=== PATIENT | female | born 1990 | race Caucasian/White ===

== ENCOUNTER 2019-08-31 10:55 | Emergency (ER) | payer MEDICAID ==
[~2019-08-31] VITALS: Ht 160 cm; Wt 64.0 kg
[2019-08-31] MEDS ORDERED: ACETAMINOPHEN 500MG TABLET PO ONE (14:00)
[2019-08-31 14:30] VITALS: BP 113/79
== END 2019-08-31 14:30 | disposition home or self-care (01) ==
LOC: ER 11:51
DX: B34.9 Viral infection, unspecified (principal); J45.909 Unspecified asthma, uncomplicated
CPT/HCPCS: 99282; 99283

== ENCOUNTER 2022-04-19 07:30 | Emergency (ER) | payer OTHER ==
[~2022-04-19] VITALS: Ht 160 cm; Wt 67.0 kg
[2022-04-19 07:37] VITALS: BP 119/78
[2022-04-19] MEDS ORDERED: ALBUTEROL (0.083%) 2.5MG/3ML NEB HHN STA (07:47)
[2022-04-19] MEDS ORDERED: ONDANSETRON HCL 4MG TABLET PO ONE (08:00)
[2022-04-19] MEDS ORDERED: ACETAMINOPHEN 325MG TABLET PO ONE (08:00)
[2022-04-19] MEDS ORDERED: FLUT15.844 BOTHNSTRLS (08:59)
[2022-04-19] MEDS ORDERED: ONDA4TAB50 PO (08:59)
[2022-04-19] MEDS ORDERED: AMOX1TAB16 PO (08:59)
[2022-04-19] MEDS ORDERED: TOPUD PO (08:59)
== END 2022-04-19 09:13 | disposition home or self-care (01) ==
LOC: ER 07:30
DX: B34.9 Viral infection, unspecified (principal); J45.909 Unspecified asthma, uncomplicated; R06.02 Shortness of breath; Z20.822 Contact with and (suspected) exposure to COVID-19
CPT/HCPCS: 71045; 87070; 87426; 87430; 87804; 94640; 99284; C9803; Q0162; Z7610

== ENCOUNTER 2022-07-26 08:50 | Emergency (ER) | payer MEDICAID, OTHER ==
[~2022-07-26] VITALS: Ht 160 cm; Wt 63.0 kg
[~2022-07-26 08:50] MED LIST: AMOX1TAB16 PO; FLUT15.844 BOTHNSTRLS; ONDA4TAB50 PO; TOPUD PO
[2022-07-26 08:54] VITALS: BP 128/78
[2022-07-26] MEDS ORDERED: PSEU60TA95 MT (09:44)
[2022-07-26] MEDS ORDERED: ALBU6.7H3 INH (09:44)
[2022-07-26] MEDS ORDERED: AMOX1TAB16 MT (09:44)
[2022-07-26] MEDS ORDERED: FLUT9.9S BOTHNSTRLS (09:44)
== END 2022-07-26 09:55 | disposition home or self-care (01) ==
LOC: ER 08:50
DX: J01.90 Acute sinusitis, unspecified (principal); J06.9 Acute upper respiratory infection, unspecified; J45.909 Unspecified asthma, uncomplicated; R51.9 Headache, unspecified
CPT/HCPCS: 71045; 99283

== ENCOUNTER 2022-08-11 03:23 | Emergency (ER) | payer MEDICAID, OTHER ==
[~2022-08-11] VITALS: Ht 160 cm; Wt 64.0 kg
[~2022-08-11 03:23] MED LIST changes: +ALBU6.7H3 INH; +AMOX1TAB16 MT; +FLUT9.9S BOTHNSTRLS; +PSEU60TA95 MT
[2022-08-11 04:02] LABS: CLARITY URINE CLOUDY (CLEAR); COLOR URINE YELLOW (YELLOW); KETONES URINE NEGATIVE (NEGATIVE); LEUKOCYTE ESTERASE URINE 2+ (NEGATIVE); NITRITE URINE NEGATIVE (NEGATIVE); OCCULT BLOOD URINE 1+ (NEGATIVE); PROTEIN URINE TRACE (NEGATIVE); SPECIFIC GRAVITY URINE 1.033 (1.005-1.030); UROBILINOGEN URINE 0.2 E.U./dL (0.2-1.0)
[2022-08-11] MEDS ORDERED: KETOROLAC 60MG/2ML VIAL IM STA (04:40)
[2022-08-11] MEDS ORDERED: CEFTRIAXONE SODIUM 1 G/VIAL IM ONE (04:45)
[2022-08-11] MEDS ORDERED: LIDOCAINE HCL 1% 20ML VIAL (Pyxis) INJ INFIL ONE (04:45)
[2022-08-11 06:18] LABS: BASOPHILS % 0.2 % (0.0-2.0); EOSINOPHILS % 1.1 % (0.0-5.0); HEMATOCRIT. 38.4 % (36.0-48.0); HEMOGLOBIN. 12.9 g/dL (12.0-16.0); MEAN CORPUSCULAR HEMOGLOBIN 28.4 pg (28.0-32.0); MEAN CORPUSCULAR VOLUME 84.4 fL (81.0-99.0); MEAN PLATELET VOLUME 9.3 fl (7.4-10.4); MONOCYTES % 8.3 % (2.0-8.0); NEUTROPHILS % 73.4 % (40.0-76.0); PLATELET 306 x1000/uL (130-400); RED BLOOD CELL COUNT 4.55 mill/uL (4.2-5.4); RED CELL DISTRIBUTION WIDTH 13.2 % (11.6-14.6)
[2022-08-11 06:21] LABS: CHLORIDE 107 mEq/L (98-107)
[2022-08-11 06:31] VITALS: BP 124/83
[2022-08-11] MEDS ORDERED: NAPR-681 PO (06:34)
[2022-08-11] MEDS ORDERED: PYR200 PO (06:34)
[2022-08-11] MEDS ORDERED: SULF1TAB48 MT (06:34)
== END 2022-08-11 06:51 | disposition home or self-care (01) ==
LOC: ER 03:23
DX: N39.0 Urinary tract infection, site not specified (principal)
CPT/HCPCS: 36415; 76705; 76857; 80053; 81003; 81025; 83690; 85025; 87086; 87186; 96372; 99285; J0696; J1885; J3490; Z7610

== ENCOUNTER 2022-10-05 08:51 | Emergency (ER) | payer OTHER ==
[~2022-10-05] VITALS: Ht 160 cm; Wt 63.0 kg
[~2022-10-05 08:51] MED LIST changes: +NAPR-681 PO; +PYR200 PO; +SULF1TAB48 MT
[2022-10-05 09:11] VITALS: BP 111/63
[2022-10-05 09:55] LABS: CLARITY URINE CLOUDY (CLEAR); COLOR URINE DARK YELLOW (YELLOW); KETONES URINE NEGATIVE (NEGATIVE); LEUKOCYTE ESTERASE URINE 3+ (NEGATIVE); NITRITE URINE POSITIVE (NEGATIVE); OCCULT BLOOD URINE TRACE (NEGATIVE); PROTEIN URINE TRACE (NEGATIVE); SPECIFIC GRAVITY URINE 1.023 (1.005-1.030)
[2022-10-05] MEDS ORDERED: CEPH500C2 MT (10:20)
== END 2022-10-05 10:32 | disposition home or self-care (01) ==
LOC: ER 08:51
DX: N39.0 Urinary tract infection, site not specified (principal)
CPT/HCPCS: 81003; 81025; 87077; 87186; 99283

== ENCOUNTER 2024-03-29 08:54 | Emergency (ER) | payer OTHER ==
[~2024-03-29] VITALS: Ht 160 cm; Wt 63.0 kg
[~2024-03-29 08:54] MED LIST changes: +CEPH500C2 MT
[2024-03-29 09:02] VITALS: TEMP 98.5; O2SAT 98
[2024-03-29 09:51] LABS: CLARITY URINE CLEAR (CLEAR); COLOR URINE YELLOW (YELLOW); GLUCOSE URINE NEGATIVE (NEGATIVE); KETONES URINE NEGATIVE (NEGATIVE); LEUKOCYTE ESTERASE URINE 1+ (NEGATIVE); NITRITE URINE NEGATIVE (NEGATIVE); OCCULT BLOOD URINE NEGATIVE (NEGATIVE); PH URINE 6.5 (4.5-8.0); PROTEIN URINE NEGATIVE (NEGATIVE); SPECIFIC GRAVITY URINE 1.025 (1.005-1.030)
[2024-03-29 09:55] LABS: BASOPHILS % 0.6 % (0.0-2.0); EOSINOPHILS % 1.9 % (0.0-5.0); HEMATOCRIT. 40.4 % (36.0-48.0); HEMOGLOBIN. 13.7 g/dL (12.0-16.0); LYMPHOCYTES % 21.7 % (20.0-50.0); MEAN CORPUSCULAR HEMOGLOBIN 29.2 pg (28.0-32.0); MEAN CORPUSCULAR HGB CONC 33.9 g/dL (31.0-37.0); MEAN CORPUSCULAR VOLUME 86.1 fL (81.0-99.0); MEAN PLATELET VOLUME 9.2 fl (7.4-10.4); MONOCYTES % 8.5 % (2.0-8.0); NEUTROPHILS % 67.3 % (40.0-76.0); PLATELET 239 x1000/uL (130-400); RED BLOOD CELL COUNT 4.69 mill/uL (4.2-5.4); RED CELL DISTRIBUTION WIDTH 12.4 % (11.6-14.6); WHITE BLOOD COUNT 6.7 x1000/uL (4.5-11.0)
[2024-03-29 10:03] LABS: CARBON DIOXIDE 28 mEq/L (21-32); CHLORIDE 104 mEq/L (98-107); POTASSIUM 3.8 mEq/L (3.5-5.1); PROTHROMBIN TIME 11.3 sec (9.6-11.0); SODIUM 138 mEq/L (136-145)
[2024-03-29 10:04] LABS: CALCIUM 9.7 mg/dL (8.7-10.4)
[2024-03-29 10:07] LABS: BACTERIA URINE 1+; RBC URINE 0-2 /hpf (0-2); SQUAMOUS EPITHELIAL CELL URINE 1+ /lpf (RARE/1+); WBC URINE 0-2 /hpf (0-2); YEAST URINE NONE SEEN
[2024-03-29 10:08] LABS: CREATININE 0.8 mg/dL (0.6-1.0); GLUCOSE 92 mg/dL (70-105); HCG SCREEN NEGATIVE
[2024-03-29 10:09] LABS: UREA NITROGEN BLOOD 9 mg/dL (9-23)
[2024-03-29 10:10] LABS: ALANINE AMINOTRANSFERASE 9 IU/L (10-49); ALBUMIN 4.7 g/dL (3.2-4.8); ASPARTATE AMINOTRANSFERASE 15 IU/L (<34)
[2024-03-29 10:11] LABS: BILIRUBIN DIRECT 0.2 mg/dL (<=3.0); BILIRUBIN TOTAL 0.6 mg/dL (0.1-1.0); PROTEIN TOTAL 7.5 g/dL (6.0-8.3)
[2024-03-29 10:20] LABS: TROPONIN I HIGH SENSITIVITY < 4 ng/L (3.0-34)
[2024-03-29 12:59] VITALS: BP 124/80; PULSE 80; RESP 16; O2SAT 99
== END 2024-03-29 13:00 | disposition home or self-care (01) ==
LOC: ER 09:19
DX: R06.6 Hiccough (principal); R07.9 Chest pain, unspecified; Z79.899 Other long term (current) drug therapy
CPT/HCPCS: 80076; 80048; 81003; 84703; 83690; 85025; 85610; 84484; 36415; 71045; 93005; 99285; Z7610

== ENCOUNTER 2025-01-14 06:52 | Emergency (ER) | payer MEDICAID ==
[~2025-01-14] VITALS: Ht 160 cm; Wt 66.0 kg
[2025-01-14 07:23] VITALS: O2SAT 100
[2025-01-14 09:54] LABS: BASOPHILS % 0.2 % (0.0-2.0); EOSINOPHILS % 0.3 % (0.0-5.0); HEMATOCRIT. 35.8 % (36.0-48.0); HEMOGLOBIN. 12.7 g/dL (12.0-16.0); LYMPHOCYTES % 9.3 % (20.0-50.0); MEAN PLATELET VOLUME 8.8 fl (7.4-10.4); MONOCYTES % 5.3 % (2.0-8.0); NEUTROPHILS % 84.9 % (40.0-76.0); PLATELET 248 x1000/uL (130-400); RED BLOOD CELL COUNT 4.25 mill/uL (4.2-5.4); RED CELL DISTRIBUTION WIDTH 13.0 % (11.6-14.6)
[2025-01-14 10:09] LABS: HCG SCREEN POSITIVE
[2025-01-14 10:14] LABS: CREATININE 0.6 mg/dL (0.6-1.0); UREA NITROGEN BLOOD 5 mg/dL (9-23)
[2025-01-14 10:34] LABS: B-HCG QUANTITATIVE 81957 mIU/mL (<6)
[2025-01-14 11:22] LABS: CLARITY URINE CLOUDY (CLEAR); COLOR URINE YELLOW (YELLOW); GLUCOSE URINE NEGATIVE (NEGATIVE); KETONES URINE NEGATIVE (NEGATIVE); LEUKOCYTE ESTERASE URINE 2+ (NEGATIVE); NITRITE URINE NEGATIVE (NEGATIVE); OCCULT BLOOD URINE 1+ (NEGATIVE); PH URINE 7.5 (4.5-8.0); PROTEIN URINE TRACE (NEGATIVE); SPECIFIC GRAVITY URINE 1.019 (1.005-1.030); UROBILINOGEN URINE 0.2 E.U./dL (0.2-1.0)
[2025-01-14 11:38] LABS: BACTERIA URINE 2+; SQUAMOUS EPITHELIAL CELL URINE 1+ /lpf (RARE/1+); WBC URINE TNTC /hpf (0-2)
[2025-01-14] MEDS ORDERED: NITR100C PO (11:39)
[2025-01-14 13:07] VITALS: BP 117/76; PULSE 71; RESP 18; TEMP 36.6; O2SAT 100
== END 2025-01-14 14:32 | disposition home or self-care (01) ==
LOC: ER 06:52
DX: O23.41 Unspecified infection of urinary tract in pregnancy, first trimester (principal); Z79.899 Other long term (current) drug therapy; Z98.890 Other specified postprocedural states; Z3A.08 8 weeks gestation of pregnancy
CPT/HCPCS: 36415; 76801; 80048; 81003; 81025; 84702; 84703; 85025; 86850; 86900; 87077; 87186; 99284

== ENCOUNTER 2025-02-14 11:29 | Emergency (ER) | payer MEDICAID ==
[~2025-02-14] VITALS: Ht 160 cm; Wt 68.0 kg
[~2025-02-14 11:29] MED LIST changes: +NITR100C PO
[2025-02-14 12:05] VITALS: O2SAT 97
[2025-02-14 14:14] LABS: CLARITY URINE CLOUDY (CLEAR); COLOR URINE DARK YELLOW (YELLOW); GLUCOSE URINE NEGATIVE (NEGATIVE); KETONES URINE TRACE (NEGATIVE); LEUKOCYTE ESTERASE URINE 2+ (NEGATIVE); NITRITE URINE NEGATIVE (NEGATIVE); OCCULT BLOOD URINE NEGATIVE (NEGATIVE); PH URINE 8.5 (4.5-8.0); PROTEIN URINE TRACE (NEGATIVE); SPECIFIC GRAVITY URINE 1.023 (1.005-1.030); UROBILINOGEN URINE 0.2 E.U./dL (0.2-1.0)
[2025-02-14] MEDS ORDERED: CEPH250T MT (14:25)
[2025-02-14] MEDS ORDERED: CEPH500C2 MT (14:32)
[2025-02-14 14:35] LABS: AMORPHOUS SEDIMENT URINE 2+ /lpf; BACTERIA URINE 2+; RBC URINE 0-2 /hpf (0-2); SQUAMOUS EPITHELIAL CELL URINE 1+ /lpf (RARE/1+); WBC URINE 50-100 /hpf (0-2); YEAST URINE NONE SEEN
[2025-02-14 14:49] VITALS: BP 110/61; PULSE 60; RESP 16; TEMP 36.7; O2SAT 99
== END 2025-02-14 15:05 | disposition home or self-care (01) ==
LOC: ER 11:29
DX: O23.41 Unspecified infection of urinary tract in pregnancy, first trimester (principal); N39.0 Urinary tract infection, site not specified; Z79.899 Other long term (current) drug therapy; Z3A.13 13 weeks gestation of pregnancy
CPT/HCPCS: 81003; 87077; 87186; 99283

== ENCOUNTER 2025-03-23 09:03 | Emergency (ER) | payer MEDICAID ==
[~2025-03-23] VITALS: Ht 160 cm; Wt 69.0 kg
[2025-03-23 09:08] VITALS: TEMP 37.2; O2SAT 99
[2025-03-23 11:10] LABS: CLARITY URINE CLOUDY (CLEAR); COLOR URINE YELLOW (YELLOW); GLUCOSE URINE NEGATIVE (NEGATIVE); KETONES URINE NEGATIVE (NEGATIVE); LEUKOCYTE ESTERASE URINE 3+ (NEGATIVE); NITRITE URINE NEGATIVE (NEGATIVE); OCCULT BLOOD URINE NEGATIVE (NEGATIVE); PH URINE 6.0 (4.5-8.0); PROTEIN URINE NEGATIVE (NEGATIVE); SPECIFIC GRAVITY URINE 1.009 (1.005-1.030); UROBILINOGEN URINE 0.2 E.U./dL (0.2-1.0)
[2025-03-23 11:47] LABS: BACTERIA URINE 3+; RBC URINE 0-2 /hpf (0-2); SQUAMOUS EPITHELIAL CELL URINE 3+ /lpf (RARE/1+); WBC URINE 15-25 /hpf (0-2); YEAST URINE NONE SEEN
[2025-03-23] MEDS ORDERED: CEPH500C2 MT (12:03)
[2025-03-23 12:10] VITALS: BP 105/66; PULSE 63; RESP 12; O2SAT 100
== END 2025-03-23 12:14 | disposition home or self-care (01) ==
LOC: ER 09:03
DX: O23.12 Infections of bladder in pregnancy, second trimester (principal); Z3A.18 18 weeks gestation of pregnancy; Z79.899 Other long term (current) drug therapy
CPT/HCPCS: 81003; 81025; 87077; 87186; 99283

== ENCOUNTER 2025-06-05 19:25 | Emergency (ER) | payer MEDICAID ==
[2025-06-05 21:56] LABS: INFLUENZA TYPE A Presumptive Negative (Pres. Neg.)
[2025-06-05 21:57] LABS: INFLUENZA TYPE B Presumptive Negative (Pres. Neg.)
[2025-06-05] MEDS ORDERED: BENZ1LOZ73 MM (22:15)
[2025-06-05] MEDS ORDERED: DEXT15LI31 MT (22:24)
[2025-06-05 22:29] VITALS: BP 121/69; PULSE 75; RESP 16; TEMP 37.6; O2SAT 98
== END 2025-06-05 22:35 | disposition home or self-care (01) ==
LOC: ER 19:25
DX: O99.513 Diseases of the respiratory system complicating pregnancy, third trimester (principal); O98.513 Other viral diseases complicating pregnancy, third trimester; Z3A.00 Weeks of gestation of pregnancy not specified; Z20.822 Contact with and (suspected) exposure to COVID-19
CPT/HCPCS: 87070; 87426; 87430; 87804; 99283